=== PATIENT | female | born 1985 | race Caucasian/White ===

== ENCOUNTER 2016-09-28 15:15 | Inpatient (IN) | payer OTHER ==
--- NOTE | ~2016-09-28 | PN ---
Unit #: [id number] #: [id number] Patient: HASMUKH HARDWICK [id number] [facility] [address] [place] [address] [id number] MR#: [id number] NAME: HASMUKH HARDWICK ROOM: P208 Age: 30 Sex: F Admission Date: 09/28/2016 : 1985 Attending Physician: Fabrice Vidal M.D. Admitting Physician: Fabrice Vidal M.D. Primary Care Physician: Generic Doctor Not In System [facility] PROGRESS NOTES DATE 09/30/2016 DISCUSSION The patient continues to exhibit significant disorganization of thought and continues to express little recollection of the events leading to hospitalization. Her drug screen is positive for methadone and cannabis. We continue p.r.n. medication for psychosis, but we will consider initiation of scheduled medications if the patient's psychotic symptoms persist. It had been my thought that they would probably subside as it was my feeling that they were probably substance-induced to begin with. Dictated by... Syed Smith TD: 09/30/2016 14:14 JOB #: [id number] MERGED WITH [facility] PROGRESS NOTES X Fabrice Vidal MD PROGRESS NOTE
--- NOTE | ~2016-09-28 | HP ---
Unit #: [id number] #: [id number] Patient: RAJANI HARDWICK [id number] [place] [address] [id number] I MR#: [id number] NAME: RAJANI HARDWICK ROOM: P208 Age: 30 Sex: F Admission Date: 09/28/2016 : 1985 Attending Physician: Fabrice Vidal M.D. Admitting Physician: Fabrice Vidal M.D. Primary Care Physician: Generic Doctor Not In System HISTORY AND PHYSICAL HISTORY OF PRESENT ILLNESS Rajani is a 30 year old admitted to [address] [place] [address] because of her polysubstance abuse which includes IV meth and heroin. PAST MEDICAL HISTORY Long history of poly-illicit substance abuse to include IV drugs. 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 ALLERGIES No known drug allergies. SOCIAL HISTORY Smokes 1 pack per day. Denies alcohol. Admits to a long history of poly-illicit substance abuse to include IV drugs. FAMILY HISTORY Medically noncontributory. REVIEW OF SYSTEMS CONSTITUTIONAL: No fever or chills. HEENT: Denies any sore throat, ear pain or runny nose. CARDIOVASCULAR: Denies chest pain, irregular heart rhythm or palpitations. CHEST: Denies shortness of breath or cough. No hemoptysis. GASTROINTESTINAL: Denies nausea, vomiting, diarrhea or chronic constipation. ENDOCRINE: Denies history of increased thirst or urination. No recent significant weight loss or gain. GENITOURINARY: Denies dysuria, frequency, or hematuria. SKIN: Denies any rashes. HEMATOLOGIC: Denies history of increased bleeding or bruising. MUSCULOSKELETAL: Denies any hot, swollen joints. No generalized muscle pain. NEUROLOGIC: Denies problems with vision or speech. No frequent, severe headaches. No numbness, tingling or weakness in any extremities. Denies loss of bladder or bowel control. CURRENT MEDICATIONS Detox protocol. PHYSICAL EXAMINATION GENERAL: Alert, well-nourished, no apparent distress. Unit #: [id number] #: [id number] Patient: RAJANI HARDWICK VITAL SIGNS: Blood pressure 113/70, heart rate 80, respirations 16, temperature 98.6. WEIGHT: 175. HEIGHT: 5 feet 5 inches. SKIN: Warm and dry without rash or lesion. HEENT: Normocephalic. TMs not viewed. Oral and nasal passages clear. Conjunctivae clear. PERRLA. EOMs intact. NECK: Supple without lymphadenopathy or thyromegaly. HEART: Regular rate and rhythm without murmur. LUNGS: Clear. ABDOMEN: Soft, nontender. : Not done. EXTREMITIES: No evidence of cyanosis, clubbing or edema. Moves all without focal deficit. NEUROLOGICAL: Grossly within normal limits. Cranial Nerves: II: Visual grant are intact. III, IV AND : Extraocular movements are intact. Pupils are equal, round and reactive to light. V: Facial sensation is grossly normal. VII: Facial movements and expression are normal. VIII: Auditory acuity grossly intact. IX, X: Uvula is midline. Phonation is normal. XI: Patient shrugs shoulders and turns head normally. XII: Tongue protrudes in the midline. Sensory and Motor Function: Sensory and motor sensation is grossly normal. Motor: moves all extremities well. Coordination: Gait is normal. Deep Tendon Reflexes: Intact. IMPRESSION Psychiatric admission. RECOMMENDATIONS PSYCHIATRIC: Per psychiatrist. MEDICAL: See no contraindications to participate in facility's activities. MEDICAL PROGNOSIS Good. MEDICAL CONDITION Stable. Dictated by... Emma Baxter P.A.-C. for Syed Haynes/adonis TD: 09/29/2016 15:07 JOB #: [id number] Unit #: [id number] #: [id number] Patient: RAJANI HARDWICK HISTORY AND PHYSICAL X Emma Baxter HISTORY AND PHYSICAL
--- NOTE | ~2016-09-28 | PN ---
Unit #: [id number] #: [id number] Patient: HASMUKH HARDWICK [id number] [facility] [address] [place] [address] [id number] MR#: [id number] NAME: HASMUKH HARDWICK ROOM: P208 Age: 30 Sex: F Admission Date: 09/28/2016 : 1985 Attending Physician: Fabrice Vidal M.D. Admitting Physician: Fabrice Vidal M.D. Primary Care Physician: Generic Doctor Not In System [facility] PROGRESS NOTES DATE 10/02/2016 DISCUSSION The patient remains floridly psychotic, disorganized in her thinking, and paranoid. It is becoming more apparent that this may not be substance-induced given the duration of symptoms. Accordingly, we will begin scheduled Zydis 5 mg 3 times daily. Dictated by... Fabrice Vidal M.D. CB/jimi TD: 10/02/2016 14:15 JOB #: [id number] [facility] PROGRESS NOTES X Fabrice Vidal MD PROGRESS NOTE
--- NOTE | ~2016-09-28 | DS ---
Unit #: [id number] #: [id number] Patient: HASMUKH HARDWICK [id number] [place] [address] [id number] MR#: [id number] NAME: HASMUKH HARDWICK ROOM: [facility] Age: 30 Sex: F Admission Date: 09/28/2016 : 1985 Discharge Date: 10/05/2016 Attending Physician: Fabrice Vidal M.D. 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 HOSPITAL COURSE The patient was admitted to the [address] [place] [address] unit and initially begun on Zydis 5 mg q.8 hours p.r.n. agitation due to psychosis. Initially, the patient was pleasantly confused and disoriented as to why she had come to this facility. As time went on, however, the patient's symptoms seemed to worsen somewhat. She became more paranoid and aggressive and there was concern on the part of this physician that her symptoms may in fact not have been secondary to hallucinogen use. She was thus begun on Zyprexa 5 mg t.i.d., but declined this medication. Fortunately with time, the effect of the hallucination seemed to subside. By 10/04/2016, the patient was in bright spirits contrite over the ensuing hospitalization and fully oriented and had appropriate interactions with peers and staff. She maintained this progress on 10/05/2016 and requested discharge and it was ordered. FINAL DIAGNOSES Opioid use disorder; hallucinogen use disorder with intoxication, resolved. DISPOSITION ON DISCHARGE The patient is discharged on no psychotropic or other medications. FOLLOWUP Followup will take place through the auspices of the chemical dependency intensive outpatient program provided by this facility. PROGNOSIS The patient's prognosis is considered fair, but will be darkened considerably should she continue to abuse psychoactive substances. Dictated by... Fabrice Vidal M.D. MAY/mukesh TD: 10/06/2016 01:53 JOB #: [id number] Unit #: [id number] #: [id number] Patient: HASMUKH HARDWICK DISCHARGE SUMMARY Page 1 of 1 X Fabrice Vidal MD DISCHARGE SUMMARY
--- NOTE | ~2016-09-28 | PN ---
Unit #: [id number] #: [id number] Patient: HASMUKH HARDWICK [id number] [facility] [address] [place] [address] [id number] I MR#: [id number] NAME: HASMUKH HARDWICK ROOM: P208 Age: 30 Sex: F Admission Date: 09/28/2016 : 1985 Attending Physician: Fabrice Vidal M.D. Admitting Physician: Fabrice Vidal M.D. Primary Care Physician: Generic Doctor Not In System [facility] PROGRESS NOTES DATE 10/01/2016 DISCUSSION The patient's psychotic symptoms persist. I will go ahead and add scheduled Zyprexa to the patient's p.r.n. Zyprexa though at this point she is declining all medications, and her behavior is not such that would justify administration of emergent intramuscular injections. The patient remains extremely disorganized and paranoid. Dictated by... Fabrice Vidal M.D. CB/jimi TD: 10/02/2016 07:54 JOB #: [id number] [facility] PROGRESS NOTES X Fabrice Vidal MD PROGRESS NOTE
--- NOTE | ~2016-09-28 | PN ---
Unit #: [id number] #: [id number] Patient: HASMUKH HARDWICK [id number] [facility] [address] [place] [address] [id number] I MR#: [id number] NAME: HASMUKH HARDWICK ROOM: P203 Age: 30 Sex: F Admission Date: 09/28/2016 : 1985 Attending Physician: Fabrice Vidal M.D. Admitting Physician: Fabrice Vidal M.D. Primary Care Physician: Generic Doctor Not In System [facility] PROGRESS NOTES DATE 10/03/2016 DISCUSSION The patient remains floridly psychotic, disorganized and religiously delusional. She is at least compliant with prescribed Zydis 5 mg three times daily but her symptoms at this point appear not to be substance induced entirely given their duration. Dictated by... Fabrice Vidal M.D. CB/binu TD: 10/03/2016 21:22 JOB #: [id number] [facility] PROGRESS NOTES X Fabrice Vidal MD PROGRESS NOTE
--- NOTE | ~2016-09-28 | PA ---
Unit #: [id number] #: [id number] Patient: HASMUKH HARDWICK [id number] [facility] [address] [place] [address] [id number] I MR#: [id number] NAME: HASMUKH HARDWICK ROOM: P208 Age: 30 Sex: F Admission Date: 09/28/2016 : 1985 Date of Assessment: 09/28/2016 Attending Physician: Fabrice Vidal M.D. Admitting Physician: Fabrice Vidal M.D. Primary Care Physician: Generic Doctor Not In System PSYCHIATRIC ASSESSMENT IDENTIFYING INFORMATION The patient is a 30-year-old single white female admitted with what appears to be a hallucinogen-induced psychosis. CHIEF COMPLAINT "I don't know where I am." INFORMANT Patient, reliability is poor. HISTORY OF PRESENT ILLNESS The patient is a 30-year-old white female who reports no previous history of inpatient psychiatric treatment. The patient has reportedly been taking methadone but has been off that medicine for approximately 10 days per report of the chart. The patient reports that she "may have smoked some bad spice" and was admitted to the hospital yesterday in a state of significant confusion. The patient states that she is unaware of where she is and states that she feels "really strange." She had also reported some positive suicidal ideation as well as paranoid delusional thinking. When seen today, the patient continues to be extremely disorganized in her thinking and continues to endorse positive psychosis and suicidal ideation. The patient does have a history of heroin abuse. According to the father, the patient has been acting strange ever since her boyfriend was released from alf. PAST PSYCHIATRIC HISTORY As above. PAST MEDICAL HISTORY Noncontributory. MEDICATIONS None. ALLERGIES None. FAMILY HISTORY Noncontributory. SOCIAL HISTORY The patient lives with her boyfriend. She has an extensive substance abuse history including abuse of heroin, methadone, and most recently Unit #: [id number] #: [id number] Patient: HASMUKH HARDWICK synthetic marijuana. MENTAL STATUS EXAMINATION Examination at this time reveals the patient to be a well-developed well-nourished white female appearing stated age. She is dressed in the hospital garb. She is awake, alert, and oriented to person only. Speech is impoverished and tangential. Formal testing of memory and cognition not possible secondary to the patient's inability to comply. The patient's judgment and insight appear to be significantly impaired. The patient has currently reported no suicidal ideation. She does report positive paranoid delusional thinking. Judgment and insight appear to be significantly impaired. ASSETS AND LIABILITIES The patient's assets are to be assessed. Liabilities: Lack of resources. DIAGNOSTIC IMPRESSION 1. Hallucinogen use disorder with intoxication. 2. Opioid use disorder. TREATMENT PLAN The patient remains hospitalized for safety and stabilization. I will add p.r.n. Zydis for agitation due to psychosis, and we will watch for any signs of opioid withdrawal. The patient will participate in appropriate order of milieu activities. ESTIMATED LENGTH OF STAY 3 to 5 days. Dictated by... Fabrice Vidal M.D. Shantelle TD: 09/29/2016 13:34 JOB #: [id number] PSYCHIATRIC ASSESSMENT X Fabrice Vidal MD X PSYCHIATRIC ASSESSMENT
--- NOTE | ~2016-09-28 | PN ---
Unit #: [id number] #: [id number] Patient: HASMUKH HARDWICK [id number] [facility] [address] [place] [address] [id number] MR#: [id number] NAME: HASMUKH HARDWICK ROOM: P203 Age: 30 Sex: F Admission Date: 09/28/2016 : 1985 Attending Physician: Fabrice Vidal M.D. Admitting Physician: Fabrice Vidal M.D. Primary Care Physician: Generic Doctor Not In System [facility] PROGRESS NOTES DATE 10/04/2016 DISCUSSION The patient seems significantly improved today. She is more insightful, pleasant and cooperative and understands that her substance use has lead to her admission to the hospital should she sustain progress. Discharge will likely take place tomorrow. I have discontinued scheduled Zyprexa but will leave in place the Zydis. Should the patient have experiencing any further psychotic symptoms it does appear that her symptoms were in fact substance induced. Dictated by... Fabrice Vidal M.D. CB/binu TD: 10/04/2016 18:51 JOB #: [id number] [facility] PROGRESS NOTES Page 1 of 1 X Fabrice Vidal MD X PROGRESS NOTE
[2016-09-29 09:38] LABS: BASOPHIL# 0.1 X10e3 (0-0.3); BASOPHIL% 0.6 % (0-2.5); EOSINOPHIL# 0.2 X10e3 (0-0.7); EOSINOPHIL% 1.8 % (0.0-7.0); HEMATOCRIT 44.1 % (35.0-45.0); HEMOGLOBIN 14.1 gm/dL (12.0-16.0); LYMPHOCYTE# 2.7 X10e3 (1.0-3.5); LYMPHOCYTE% 28.8 % (17.0-45.0); MEAN CORPUSCULAR HEMOGLOBIN 28.8 PG (28-34); MEAN CORPUSCULAR HGB CONC 32.1 g/dL (30-36); MEAN PLATELET VOLUME 9.6 FL (6.5-11.5); MONOCYTE# 0.6 X10e3 (0-1.0); MONOCYTE% 6.4 % (3.0-12.0); NEUTROPHIL% 62.4 % (40-75); PLATELET COUNT 246 X10e3 (140-420); RED CELL DISTRIBUTION WIDTH 13.8 % (11.0-15.5); WHITE BLOOD COUNT 9.6 X10e3 (4.0-10.5)
[2016-09-29 09:47] LABS: DIFF IND NO
[2016-09-29 09:59] LABS: ALBUMIN SERUM 4.4 g/dL (3.5-5.0); ALKALINE PHOSPHATASE 49 U/L (32-92); ALT (SGPT) 24 U/L (10-40); AST (SGOT) 29 U/L (10-42); BILIRUBIN,TOTAL 0.5 mg/dL (0.2-2.0); BLOOD UREA NITROGEN 10 mg/dL (9-23); CALCIUM SERUM 9.4 mg/dL (8.4-10.2); CARBON DIOXIDE 25 mmol/L (22-31); CHLORIDE 106 mmol/L (100-111); CREATININE SERUM 0.8 mg/dL (0.6-1.4); GLOM FILT RATE Estimated ABOVE60 mL/min (>60); GLUCOSE FASTING 177 mg/dL (70-110); POTASSIUM 3.8 mmol/L (3.5-5.1); PROTEIN TOTAL SERUM 7.1 g/dL (6.0-8.3); SODIUM 141 mmol/L (135-145)
[2016-09-29 10:05] LABS: THYROID STIMULATING HORMONE 0.29 uIU/ml (0.34-5.60)
[2016-09-29 10:11] LABS: FREE THYROXIN (T4) 0.99 ng/dL (0.58-1.64)
[2016-09-30 10:44] LABS: URINE APPEARANCE TURBID; URINE BILIRUBIN NEG (NEG); URINE BLOOD NEG (NEG); URINE COLOR YELLOW; URINE GLUCOSE NEG (NEG); URINE KETONE NEG (NEG); URINE LEUKOCYTE ESTERASE NEG (NEG); URINE NITRATE NEG (NEG); URINE PROTEIN NEG (NEG); URINE SPECIFIC GRAVITY 1.032 (1.003-1.035)
[2016-09-30 11:13] LABS: AMPHETAMINE NEG (NEG); BARBITURATES NEG (NEG); BENZODIAZEPINES NEG (NEG); COCAINE NEG (NEG); MARIJUANA POS (NEG); OPIATES NEG (NEG); TRICYCLIC ANTIDEPRESSANTS NEG (NEG); U METHADONE POS (NEG)
== END 2016-10-05 16:30 | DRG 897 ==
LOC: P2S 15:15
PROVIDERS: Specialist
PROC: HZ2ZZZZ Detoxification Services for Substance Abuse Treatment (ICD-10-PCS; principal; 2016-09-28)
DX: F16.929 Hallucinogen use, unspecified with intoxication, unspecified (principal); F11.10 Opioid abuse, uncomplicated; F15.10 Other stimulant abuse, uncomplicated; F16.959 Hallucinogen use, unspecified with hallucinogen-induced psychotic disorder, unspecified; F17.210 Nicotine dependence, cigarettes, uncomplicated
CPT/HCPCS: 80053; 80307; 81003; 84439; 84443; 84703; 85025; 86592; J2550